=== PATIENT | male | born 1970 | race Caucasian/White ===

== ENCOUNTER 2023-09-08 21:47 | Inpatient (IN) | payer MEDICAID, SELFPAY ==
--- NOTE | ~2023-09-08 | US_ITS ---
EXAMINATION: US SCROTUM CLINICAL INFORMATION: Left-sided pain.. COMPARISON: None available. TECHNIQUE: A sonogram of the scrotum was performed assessing junior-scale appearance and color Doppler flow. Spectral Doppler analysis of the arterial and venous flow were performed in the testes bilaterally. FINDINGS: RIGHT: Right testicle measures 4 x 2.5 x 2.0 cm, volume 17.5 mL. No focal testicular parenchymal lesions are visualized. Spectral Doppler analysis of the arterial and venous flow is normal in the right testis. There is a 4 mm right epididymal head cyst. No right hydrocele or varicocele is seen. Right epididymal Doppler flow is normal. LEFT: Left testicle measures 3.2 x 2.0 x 2.5 cm, volume 8 mL. No focal testicular parenchymal lesions are visualized. Spectral Doppler analysis of the arterial and venous flow is normal in the left testis. There is a 2 mm left epididymal head cyst. Left epididymis is enlarged. No left hydrocele or varicocele is seen. Left epididymal Doppler flow is increased. US/US scrotum doppler IMPRESSION: Enlarged left epididymis with increased Doppler flow consistent with epididymitis. The testicles are normal.
--- NOTE | ~2023-09-08 | US_ITS ---
EXAMINATION: US SCROTUM CLINICAL INFORMATION: Left-sided pain.. COMPARISON: None available. TECHNIQUE: A sonogram of the scrotum was performed assessing junior-scale appearance and color Doppler flow. Spectral Doppler analysis of the arterial and venous flow were performed in the testes bilaterally. FINDINGS: RIGHT: Right testicle measures 4 x 2.5 x 2.0 cm, volume 17.5 mL. No focal testicular parenchymal lesions are visualized. Spectral Doppler analysis of the arterial and venous flow is normal in the right testis. There is a 4 mm right epididymal head cyst. No right hydrocele or varicocele is seen. Right epididymal Doppler flow is normal. LEFT: Left testicle measures 3.2 x 2.0 x 2.5 cm, volume 8 mL. No focal testicular parenchymal lesions are visualized. Spectral Doppler analysis of the arterial and venous flow is normal in the left testis. There is a 2 mm left epididymal head cyst. Left epididymis is enlarged. No left hydrocele or varicocele is seen. Left epididymal Doppler flow is increased. US/US scrotum IMPRESSION: Enlarged left epididymis with increased Doppler flow consistent with epididymitis. The testicles are normal.
[2023-09-08 21:57] VITALS: BP 110/66; BP 114/62; PULSE 104; PULSE 105; RESP 16; TEMP 37.9; O2SAT 98; BMI 27.3
[2023-09-08 22:03] VITALS: BP 114/62; PULSE 104; RESP 16; TEMP 37.9; O2SAT 98
--- NOTE | 2023-09-08 23:02 | ED_ITS ---
HPI - Male Genitourinary General Chief complaint: Urogenital-Male Stated complaint: ABD SWELLING Time Seen by Provider: 09/08/23 22:29 Source: patient Mode of arrival: ambulatory Limitations: no limitations History of Present Illness ED Provider: ELIER FERREIRA Narrative: 53 yo male with PMH of sciatica on gabapentin and tramadol noted 2 days of testicular pain and swelling much worse on L side today was seen at [facility] yesterday they did urine sample and told him they would call with results in 2 days no other labs or US done. He did have unprotected sex with female 1.5 months ago. He notes increase in urination and increased swelling in testicle. He has never had this before. He has chills, pain, fatigue and does not feel well MD Complaint: testicle pain and testicle swelling Onset (ago): day(s) (2) Duration: progressively worsening Location: left testicle Radiation: left testicle and left inguinal region Severity: moderate Quality: aching Relieving factors: rest Exacerbating factors: urination, palpation and movement Context: new sexual partner Associated symptoms: Reports dysuria Related Data Allergies Allergy/AdvReac Type Severity Reaction Status Date / Time No Known Allergies Allergy Verified 09/08/23 22:01 Review of Systems 2 Review of Systems: Constitutional : No Fever, pos Chills, pos Fatigue ENT/Mouth : No sore throat, No Rhinorrhea Eyes: No Eye Pain, No Swelling, No Redness Cardiovascular : No Chest Pain, No SOB, No Dyspnea on Exertion Respiratory : No Cough, No Sputum Gastrointestinal : No Nausea, No Vomiting, No Diarrhea, No abdominal Pain Genitourinary : pos Dysuria, No Urinary Frequency, No Hematuria, pos testicular pain and swelling Musculoskeletal : No joint pain, No Myalgias, No Joint Swelling Skin : No Skin Lesions, No rash Neuro : No Weakness, No Numbness, No Dizziness, no Headache Psych : No Anxiety/Panic, No Depression All other systems reviewed and are negative [facility] Past Medical History Attestation statement: The following information was validated with the patient. Source: old records reviewed Medical History Sciatica Social History Social History Patient Tobacco Use Status: Current someday Tobacco user Smoked in Last 30 Days: Yes Substance Use Type: Marijuana Advance Directives: No Advance Directives Information Provided: No Do you have a plan to hurt others: No Plan Physical Exam 2 Vital Signs: Vital Signs: Last Vital Signs Temp 99.5 F 09/09/23 00:00 Pulse 89 09/09/23 00:00 Resp 18 09/09/23 00:00 BP 113/68 09/09/23 00:00 Pulse Ox 98 09/09/23 00:00 O2 Del Method Room Air 09/09/23 00:00 BMI result Body Mass Index 27.3 Appearance: Alert. Oriented X3. No acute distress. Eyes: Pupils equal, round and reactive to light. ENT: Pharynx normal. Neck: Normal inspection. Neck supple. CVS: Normal heart rate and rhythm. Pulses normal. Respiratory: No respiratory distress. Breath sounds normal. Abdomen: Soft and nontender. : L scrotal area is ttp in spermatic cord region and redness/pain swelling fluctuant tender area on scrotal area as well Skin: Skin warm and dry. Normal skin color. Normal skin turgor. Extremities: No lower extremity edema. No calf ttp Neuro: Oriented X 3. No motor deficit. No sensory deficit. Medications Administered Generic Name Dose Route Start Last Admin Trade Name Freq PRN Reason Stop Dose Admin Enoxaparin Sodium 40 mg 09/09/23 01:30 09/09/23 01:45 Enoxaparin Sodium 40 Mg/0.4 Ml Syringe SUBCUT 40 mg Q24H JAZMINE Administration Discontinued Medications Generic Name Dose Route Start Last Admin Trade Name Freq PRN Reason Stop Dose Admin Sodium Chloride 1,000 mls @ 999 mls/hr 09/08/23 22:51 09/09/23 01:11 Ns IV 09/08/23 23:51 Infused .Q1H1M ONE Infusion Ceftriaxone Sodium 1 gm/ 50 mls @ 100 mls/hr 09/08/23 22:51 09/09/23 00:09 Sodium Chloride IV 09/08/23 23:20 Infused ONCE ONE Infusion Doxycycline Hyclate 100 mg/ 250 mls @ 166.67 mls/hr 09/08/23 23:57 09/09/23 01:49 Sodium Chloride IV 09/09/23 01:26 Infused ONCE ONE Infusion Doxycycline Hyclate 100 mg/ 250 mls @ 166.67 mls/hr 09/09/23 01:30 09/09/23 03:25 Sodium Chloride IV Not Given Q12H JAZMINE Ceftriaxone Sodium 1 gm/ 50 mls @ 100 mls/hr 09/09/23 01:30 09/09/23 03:25 Sodium Chloride IV Not Given Q24H [facility] Ketorolac Tromethamine 15 mg 09/08/23 22:51 09/08/23 23:12 Ketorolac Tromethamine 15 Mg/Ml Vial IVPUSH 09/08/23 22:52 15 mg ONCE ONE Administration Morphine Sulfate 4 mg 09/08/23 22:51 09/08/23 23:12 Morphine Sulfate 4 Mg/Ml Cartridge IVPUSH 09/08/23 22:52 4 mg ONCE ONE Administration Protocol Ondansetron HCl 4 mg 09/08/23 22:51 09/08/23 23:12 Ondansetron Hcl 4 Mg/2 Ml Vial IVPUSH 09/08/23 22:52 4 mg ONCE ONE Administration Medical Decision Making Medical Decision Making [facility] Narrative: 53 yo male with PMH of sciatica on gabapentin and tramadol here with c/o scrotal pain and swelling s/p sexual partner 1.5 months ago and dysuria at this time labs, US will start on fluids, empiric ceftriaxone could be abscess, cellulitis, epididymitis/orchitis. Will treat as presumed exposure ceftriaxone and doxy. He is not vomiting and able to tolerate PO Differential Diagnosis Differential Diagnoses: The differential diagnosis associated with the presentation includes abscess, cellulitis, epididymitis/orchitis Admission/Observation Consideration of admission/observation: Escalation of care including admission/observation considered has wbc count, fevers, HR > 100 known source of infection at this time will admit for further management would continue doxy and likely add on oral levofloxacin but will defer to hospitalist Consult Healthcare Provider Management of the patient was discussed with: Hospitalist (will admit) Lab Data [facility] Lab Attestation statement: I reviewed the patient's lab results. 09/08/23 23:03 09/08/23 23:03 Labs: Lab Results 09/08/23 Range/Units 23:03 WBC 20.3 H (4.8-10.8) X10*3/uL RBC 4.08 L (4.60-5.80) X10*6/uL Hgb 11.2 L (14.0-18.0) g/dl Hct 33.8 L (42.0-52.0) % MCV 82.8 (80.0-98.0) fL MCH 27.5 (27.0-33.0) pg MCHC 33.1 (31.0-36.0) g/dl RDW 14.6 (11.0-16.0) % Plt Count 460 H (160-400) X10*3/uL MPV 8.2 L (9.4-12.4) fL Immature Gran % (Auto) 0.5 H (0.0-0.4) % Neut % (Auto) 83.6 H (45-73) % Lymph % (Auto) 9.4 L (20-40) % [place] % (Auto) 5.5 (2-11) % Eos % (Auto) 0.8 (0-4) % Baso % (Auto) 0.2 (0-2) % Lymph # (Auto) 1.9 (1.2-4.9) X10*3/uL [place] # (Auto) 1.1 (0.1-1.2) X10*3/uL Eos # (Auto) 0.2 (0.0-0.4) X10*3/uL Baso # (Auto) 0.1 (0.0-0.2) X10*3/uL Abs Immat Gran (auto) 0.11 H (0.00-0.03) X10*3/uL Absolute Neuts (auto) 17.0 H (2.0-8.3) x10*3/uL Absolute Nucleated RBC 0.000 (0.0-0.012) X10*3/uL Nucleated RBC % (auto) 0.0 (0.0-0.2) /100WBC Sodium 138 (135-145) mmol/L Potassium 3.9 (3.3-5.1) mmol/L Chloride 104 (96-108) mmol/L Carbon Dioxide 25 (22-29) mmol/L Anion Gap 13 (12-20) BUN 13 (9-16) mg/dL Creatinine 0.78 (0.5-1.4) mg/dL Estim Creat Clear Calc 103.5 Estimated GFR > 60 Random Glucose 106 (60-115) mg/dL Lactic Acid 0.5 (0.5-2.0) mmol/L Calcium 9.5 (8.4-10.2) mg/dL Magnesium 2.0 (1.6-2.6) mg/dL Total Bilirubin 0.4 (0.0-1.0) mg/dL Direct Bilirubin 0.2 (0.0-0.5) mg/dL AST 16 (5-37) U/L ALT 14 (0-40) U/L Alkaline Phosphatase 71 (39-117) U/L Total Protein 7.5 (6.5-8.0) g/dL Albumin 3.9 (3.5-5.0) g/dL Lipase 23 (8-78) U/L Independent Interpretation I performed an independent interpretation of an: Ultrasound (epididymitis) Radiology Impression Discussion of test interpretation with radiology: I have reviewed the radiologist's reading. Critical Care Time Critical Care Time Critical Care Time: Yes Total Critical Care Time: 40 Attestation: pain improved with IV morphine, admission, sepsis protocol I attest to this time spent taking care of the patient Discharge Plan Discharge Clinical Impression: Epididymitis Elevated WBC count Qualifiers: Leukocytosis type: unspecified Qualified Code(s): D72.829 - Elevated white blood cell count, unspecified Patient Disposition: Admitted As Inpatient
[2023-09-08 23:10] LABS: MANUAL DIFF FLAG NO
[2023-09-08] MEDS: 0.9 % Sodium Chloride 1,000 ML 999 ML IV (23:11)
[2023-09-08 23:12] LABS: Basophils Absolute Auto 0.1 X10*3/uL (0.0-0.2); Basophils Percent Auto 0.2 % (0-2); Eosinophils Absolute Auto 0.2 X10*3/uL (0.0-0.4); Eosinophils Percent Auto 0.8 % (0-4); Hematocrit 33.8 % (42.0-52.0); Hemoglobin 11.2 g/dl (14.0-18.0); Imm Gran Abs Auto 0.11 X10*3/uL (0.00-0.03); Imm Gran Pct Auto 0.5 % (0.0-0.4); Lymphocytes Absolute Auto 1.9 X10*3/uL (1.2-4.9); Lymphocytes Percent Auto 9.4 % (20-40); Mean Corpuscular HGB Conc 33.1 g/dl (31.0-36.0); Mean Corpuscular Hemoglobin 27.5 pg (27.0-33.0); Mean Corpuscular Volume 82.8 fL (80.0-98.0); Mean Platelet Volume 8.2 fL (9.4-12.4); Monocytes Absolute Auto 1.1 X10*3/uL (0.1-1.2); Monocytes Percent Auto 5.5 % (2-11); Neutrophils Percent Auto 83.6 % (45-73); Platelet Count 460 X10*3/uL (160-400); Red Blood Count 4.08 X10*6/uL (4.60-5.80); Red Cell Distribution Width 14.6 % (11.0-16.0); White Blood Count 20.3 X10*3/uL (4.8-10.8)
[2023-09-08] MEDS: cefTRIAXone sodium 1 GM in 0.9 % Sodium Chloride 50 ML IV (23:12)
[2023-09-08] MEDS: ondansetron HCL 4 MG/2 ML VIAL IVPUSH (23:12)
[2023-09-08] MEDS: Ketorolac Tromethamine 15 MG/ML VIAL IVPUSH (23:12)
[2023-09-08] MEDS: Morphine Sulfate 4 MG/ML CARTRIDGE IVPUSH (23:12)
[2023-09-08 23:23] LABS: Lactic Acid 0.5 mmol/L (0.5-2.0)
[2023-09-08 23:29] LABS: Alanine Aminotransferase 14 U/L (0-40); Albumin Level 3.9 g/dL (3.5-5.0); Alkaline Phosphatase 71 U/L (39-117); Anion Gap 13 (12-20); Aspartate Amino Transferase 16 U/L (5-37); Bilirubin Direct 0.2 mg/dL (0.0-0.5); Bilirubin Total 0.4 mg/dL (0.0-1.0); Blood Urea Nitrogen 13 mg/dL (9-16); Calcium 9.5 mg/dL (8.4-10.2); Carbon Dioxide 25 mmol/L (22-29); Chloride 104 mmol/L (96-108); Creatinine Clr Calc Pharmacy 103.5; Estimated Glomerular Filt Rate > 60; Glucose Random 106 mg/dL (60-115); Lipase 23 U/L (8-78); Potassium 3.9 mmol/L (3.3-5.1); Sodium 138 mmol/L (135-145); Total Protein 7.5 g/dL (6.5-8.0)
[2023-09-09] VITALS: BP 113/68; PULSE 89; RESP 18; TEMP 37.5; O2SAT 98
[2023-09-09] MEDS: Doxycycline Hyclate 100 MG in 0.9 % Sodium Chloride 250 ML 166.67 MG IV ×2 (00:09→11:40)
--- NOTE | 2023-09-09 01:24 | P.HPHOSP_ITS ---
History of Present Illness Date of Service: 09/09/23 Chief Complaint: Testicular pain This is a 53-year-old male with pertinent history of peripheral neuropathy who presents to the emergency department for evaluation of testicular pain and swelling. Patient states symptoms started 2 days prior to presentation. He started having left testicular pain and swelling which has been progressive and without any relief. No history of similar symptoms before. Patient admits that he had unprotected vaginal intercourse with a new partner about a month ago. No penile discharge but does admit dysuria and some hematuria. No history of STIs in the past. No anal sexual intercourse. Does admit chills but no fever. Denies chest discomfort, palpitations, vomiting, nausea, shortness of breath, changes in bowel habits. In the emergency department, patient was found to be septic and imaging concerning for acute epididymitis Review of Systems 2 Constitutional: Constitutional: Reports chills and Reports fatigue Cardiovascular: Cardiovascular: Reports no additional cardiovascular complaints Respiratory: Respiratory: Reports no additional respiratory complaints Gastrointestinal: Gastrointestinal: Reports no additional gastrointestinal complaints Genitourinary: Genitourinary: Reports hematuria, Reports dysuria, Reports scrotal swelling, Reports testicular pain and Reports urinary frequency Endocrine: Endocrine: Reports fatigue [facility] Medical History Sciatica Pertinent family history: No family history of early CAD Social History Patient Tobacco Use Status: Current someday Tobacco user Smoked in Last 30 Days: Yes Substance Use Type: Marijuana Advance Directives: No Advance Directives Information Provided: No Do you have a plan to hurt others: No Plan Meds Allergies Allergy/AdvReac Type Severity Reaction Status Date / Time No Known Allergies Allergy Verified 09/08/23 22:01 Active Medications: Current Medications Doxycycline Hyclate 100 mg/ (Sodium Chloride) 250 mls @ 166.67 mls/hr IV ONCE ONE Stop: 09/09/23 01:26 Last Admin: 09/09/23 00:09 Dose: 166.67 mls/hr Physical Exam 2 Vital Signs and Narrative: Vital Signs: Last Vital Signs Temp 99.5 F 09/09/23 00:00 Pulse 89 09/09/23 00:00 Resp 18 09/09/23 00:00 BP 113/68 09/09/23 00:00 Pulse Ox 98 09/09/23 00:00 O2 Del Method Room Air 09/09/23 00:00 BMI result Body Mass Index 27.3 Middle-aged male lying in bed in no distress Neck supple, no JVD Regular rate and rhythm, S1-S2 heard Regular breath sounds bilaterally, no wheezing or crackles appreciated Abdomen soft nontender, no guarding, no rigidity Left scrotum with tenderness, swelling, erythema Patient is awake, alert and oriented to self, place, time and person ; no focal motor deficit Psych: Normal mood No pedal edema Results Labs 09/08/23 23:03 09/08/23 23:03 Labs: Laboratory Results - last 24 hr 09/08/23 23:03 MCV 82.8 MCH 27.5 MCHC 33.1 RDW 14.6 Plt Count 460 H MPV 8.2 L Immature Gran % (Auto) 0.5 H Neut % (Auto) 83.6 H Lymph % (Auto) 9.4 L [place] % (Auto) 5.5 Eos % (Auto) 0.8 Baso % (Auto) 0.2 Lymph # (Auto) 1.9 [place] # (Auto) 1.1 Eos # (Auto) 0.2 Baso # (Auto) 0.1 Abs Immat Gran (auto) 0.11 H Absolute Neuts (auto) 17.0 H Absolute Nucleated RBC 0.000 Nucleated RBC % (auto) 0.0 Anion Gap 13 Estim Creat Clear Calc 103.5 Estimated GFR > 60 Random Glucose 106 Lactic Acid 0.5 Calcium 9.5 Magnesium 2.0 Total Bilirubin 0.4 Direct Bilirubin 0.2 AST 16 ALT 14 Alkaline Phosphatase 71 Total Protein 7.5 Albumin 3.9 Lipase 23 Imaging Radiologist's Impressions: Impressions Scrotum Ultrasound 09/09/23 00:00 IMPRESSION: Enlarged left epididymis with increased Doppler flow consistent with epididymitis. The testicles are normal. Scrotum Ultrasound 09/09/23 00:00 IMPRESSION: Enlarged left epididymis with increased Doppler flow consistent with epididymitis. The testicles are normal. Assessment and Plan (1) Epididymitis: Status: Acute Plan This is a 53-year-old male with pertinent history of peripheral neuropathy who presents to the emergency department for evaluation of testicular pain and swelling. #. Acute epididymitis with sepsis: Will admit patient and initiate empiric IV ceftriaxone and doxycycline. Concern for STI as patient had vaginal intercourse with a new partner. CT NG pending. IV opioids p.r.n. for analgesia #. Peripheral neuropathy: On gabapentin and tramadol Med rec pending DVT prophylaxis: Lovenox Full code Admit as inpatient and will require two night minimum hospital stay for IV antibiotics, IV analgesics (as above), which is not possible in a lesser acute setting. Quality Stroke Does the patient have a stroke diagnosis?: No VTE Prior VTE?: No VTE Risk Level:: Medical - moderate - high VTE Device Contraindication: Treatment Not Indicated VTE Drug Contraindication: N/A - Med Ordered
[2023-09-09] MEDS: Enoxaparin Sodium 40 MG/0.4 ML SYRINGE SUBCUT (01:45)
[2023-09-09 05:00] LABS: MANUAL DIFF FLAG NO
[2023-09-09 05:03] LABS: Basophils Percent Auto 0.2 % (0-2); Eosinophils Absolute Auto 0.2 X10*3/uL (0.0-0.4); Eosinophils Percent Auto 1.3 % (0-4); Hematocrit 30.4 % (42.0-52.0); Hemoglobin 9.9 g/dl (14.0-18.0); Imm Gran Abs Auto 0.11 X10*3/uL (0.00-0.03); Imm Gran Pct Auto 0.7 % (0.0-0.4); Lymphocytes Percent Auto 12.2 % (20-40); Mean Corpuscular HGB Conc 32.6 g/dl (31.0-36.0); Mean Corpuscular Hemoglobin 27.3 pg (27.0-33.0); Mean Corpuscular Volume 83.7 fL (80.0-98.0); Mean Platelet Volume 8.7 fL (9.4-12.4); Monocytes Absolute Auto 1.3 X10*3/uL (0.1-1.2); Monocytes Percent Auto 7.5 % (2-11); Neutrophils Percent Auto 78.1 % (45-73); Platelet Count 407 X10*3/uL (160-400); Red Blood Count 3.63 X10*6/uL (4.60-5.80); Red Cell Distribution Width 14.7 % (11.0-16.0); White Blood Count 16.6 X10*3/uL (4.8-10.8)
[2023-09-09 05:19] LABS: Anion Gap 12 (12-20); Blood Urea Nitrogen 11 mg/dL (9-16); Calcium 8.8 mg/dL (8.4-10.2); Carbon Dioxide 24 mmol/L (22-29); Chloride 107 mmol/L (96-108); Creatinine Clr Calc Pharmacy 102.2; Estimated Glomerular Filt Rate > 60; Glucose Random 92 mg/dL (60-115); Potassium 3.7 mmol/L (3.3-5.1); Sodium 139 mmol/L (135-145)
[2023-09-09 06:00] VITALS: BP 128/79; PULSE 90; RESP 16; TEMP 37.3; O2SAT 100
[2023-09-09] MEDS: Acetaminophen 325 MG TABLET 650 MG PO (06:24)
[2023-09-09] MEDS: Morphine Sulfate 4 MG/ML CARTRIDGE IVPUSH ×2 (06:25→10:37)
[2023-09-09 08:10] VITALS: BP 115/81; PULSE 84; RESP 18; TEMP 36.6; O2SAT 98
[2023-09-09 08:10] LABS: Appearance Urine Clear; Color Urine Yellow; Glucose Urine UA Negative (Negative); Leukocyte Esterase Urine Moderate (2+) (Negative); Nitrite Urine Negative (Negative); PH 5.5 (5.0-9.0); Specific Gravity - Urine 1.015 (1.005-1.025); UMIC TRIGGER UACC YES; Urine Blood Negative (Negative); Urine Ketones Negative (Negative); Urine Protein Trace mg/dL (Neg-Trace)
[2023-09-09 08:22] LABS: Bacteria Urine None Seen (None Seen); Hyaline Casts Urine 0-2 /LPF (0-2); RBC Urine 0-2 /HPF (0-2); Squamous Epithelial Cell Urine 0-2 /HPF (0-2); UACC Culture Trigger YES; WBC Urine 21-50 /HPF (0-5)
--- NOTE | 2023-09-09 08:37 | PHA.MEDREC ---
Pharmacy Consult ? Medication Reconciliation Pharmacy has completed the medication reconciliation. spoke with patient to confirm medications. Patient does not take clonidine or hydroxyzine. He last took gabapentin yesterday. Patient states he has not taken the other medications in a few days because he keeps them at his friends house and she is not home all the time for him to take them.
[2023-09-09 09:11] VITALS: BMI 26.9
--- NOTE | 2023-09-09 11:08 | PM.EVENT ---
Event Note Date of Service: 09/09/23 Event Note: patient seen and examined, labs medications and imaging review, med rec completed. Pt admitted this morningfor acute epididymitis, plan as follow 53-year-old male with pertinent history of peripheral neuropathy who presents to the emergency department for evaluation of testicular pain and swelling. Acute epididymitis with sepsis -continue Ceftriaxone -Uro consult if not improving -morphine for pain Peripheral neuropathy: On gabapentin and tramadol Mood disorder--Cymbalta DVT prophylaxis: Lovenox Full code Time Spent With Patient Time: Total time managing care of this patient today ____ minutes.
[2023-09-09 11:20] LABS: CT PCR NOT DETECTED (Not Detect.); NG PCR DETECTED (Not Detect.)
[2023-09-09] MEDS: DULoxetine HCl 30 MG CAPSULE.DR PO (11:37)
--- NOTE | 2023-09-09 13:22 | MHC.CM.PN ---
Addendum entered by Radha Renteria 09/09/23 13:42: NEW HCP COMPLETED AND NOW ON FILE Original Note: PT REPORTS HE LIVES WITH A FRIEND AND IS INDEPENDENT WITH CARE HE HAS NO SERVICES AND NO DME PT WILL COMPLETE A HCP NAMING HIS FRIEND, DEANNE SCHMIDT, HIS AGENT PCP: DEANNE SALES DCP: HOME PT WILL NEED A LYFT FOR TRANSPORT
[2023-09-09] MEDS: Morphine Sulfate 2 MG/ML CARTRIDGE IVPUSH ×2 (14:32→19:10)
[2023-09-09] MEDS: Gabapentin 300 MG CAPSULE PO ×2 (14:32→21:19)
[2023-09-09] MEDS: 0.9 % Sodium Chloride Flush 3 ML SYRINGE IVFLUSH (14:33)
[2023-09-09 16:00] VITALS: BP 122/79; PULSE 72; RESP 16; TEMP 36.4; O2SAT 98
[2023-09-09 20:00] VITALS: BP 113/70; PULSE 99; RESP 16; TEMP 37.1; O2SAT 98
[2023-09-09] MEDS: traMADoL HCL 50 MG TABLET PO (21:19)
[2023-09-10] MEDS: cefTRIAXone sodium 1 GM in 0.9 % Sodium Chloride 50 ML IV (00:03)
[2023-09-10] MEDS: 0.9 % Sodium Chloride Flush 3 ML SYRINGE IVFLUSH ×3 (00:04→15:46)
[2023-09-10] MEDS: Morphine Sulfate 2 MG/ML CARTRIDGE IVPUSH ×4 (00:33→17:41)
[2023-09-10] MEDS: Enoxaparin Sodium 40 MG/0.4 ML SYRINGE SUBCUT (00:34)
[2023-09-10] MEDS: Doxycycline Hyclate 100 MG in 0.9 % Sodium Chloride 250 ML 166.67 MG IV ×2 (00:34→11:40)
[2023-09-10 03:58] VITALS: BP 123/84; PULSE 84; RESP 16; TEMP 36.1; O2SAT 99
[2023-09-10 06:24] LABS: Hemoglobin 11.4 g/dl (14.0-18.0); Mean Corpuscular HGB Conc 32.6 g/dl (31.0-36.0); Mean Corpuscular Hemoglobin 26.6 pg (27.0-33.0); Mean Corpuscular Volume 81.8 fL (80.0-98.0); Mean Platelet Volume 8.8 fL (9.4-12.4); Platelet Count 468 X10*3/uL (160-400); Red Blood Count 4.28 X10*6/uL (4.60-5.80); Red Cell Distribution Width 14.2 % (11.0-16.0)
[2023-09-10 06:35] LABS: Anion Gap 15 (12-20); Blood Urea Nitrogen 8 mg/dL (9-16); Calcium 9.6 mg/dL (8.4-10.2); Carbon Dioxide 24 mmol/L (22-29); Chloride 103 mmol/L (96-108); Creatinine Clr Calc Pharmacy 110.6; Estimated Glomerular Filt Rate > 60; Glucose Random 87 mg/dL (60-115); Potassium 4.2 mmol/L (3.3-5.1); Sodium 138 mmol/L (135-145)
[2023-09-10 07:48] VITALS: BP 136/86; PULSE 80; RESP 17; TEMP 36.3; O2SAT 99
[2023-09-10] MEDS: Gabapentin 300 MG CAPSULE PO ×3 (08:22→19:33)
[2023-09-10] MEDS: DULoxetine HCl 30 MG CAPSULE.DR PO (08:22)
--- NOTE | 2023-09-10 09:11 | HO.PM.IMPN ---
Subjective Subjective Date of Service: 09/10/23 Interval History: follow-up on STI (gonorrhea), acute epididymitis interval history: Reporting significant pain and swelling in left testicular area and inguinal area Physical Exam Vital Signs: Vital Signs: Last Vital Signs Temp 97.4 F 09/10/23 07:48 Pulse 80 09/10/23 07:48 Resp 17 09/10/23 07:48 BP 136/86 09/10/23 07:48 Pulse Ox 99 09/10/23 07:48 O2 Del Method Room Air 09/10/23 07:48 BMI result Body Mass Index 26.9 Const: Other: General: AO X 3, no acute distress Resp: CTA bilateral CVS: S1,S2,RRR GI: +BS, NT, no distention Skin: No rash : left tesicular and inguinal area swelling Neuro: motor grossly intact Psych: appropriate affect Objective Data Active Medications Acetaminophen (Acetaminophen 325 Mg Tablet) 650 mg PO Q6H PRN PRN Reason: Pain, Mild (Pain Scale 1-3), fever or headache Last Admin: 09/09/23 06:24 Dose: 650 mg Documented By: THOMAS Calcium Carbonate (Calcium Carbonate 750 Mg Tab.Chew) 750 mg PO Q4H PRN PRN Reason: Heartburn Duloxetine HCl (Duloxetine Hcl 30 Mg Capsule.Dr) 30 mg PO DAILY [facility] Last Admin: 09/10/23 08:22 Dose: 30 mg Documented By: MANDO Enoxaparin Sodium (Enoxaparin Sodium 40 Mg/0.4 Ml Syringe) 40 mg SUBCUT Q24H [facility] Last Admin: 09/10/23 00:34 Dose: 40 mg Documented By: AARON Gabapentin (Gabapentin 300 Mg Capsule) 300 mg PO TID [facility] Last Admin: 09/10/23 08:22 Dose: 300 mg Documented By: MANDO Ceftriaxone Sodium 1 gm/ (Sodium Chloride) 50 mls @ 100 mls/hr IV Q24H [facility] Last Infusion: 09/10/23 00:35 Dose: Infused Documented By: AARON Doxycycline Hyclate 100 mg/ (Sodium Chloride) 250 mls @ 166.67 mls/hr IV Q12H [facility] Last Infusion: 09/10/23 02:05 Dose: Infused Documented By: AARON Magnesium Hydroxide (Milk Of Magnesia 30 Ml Oral.Susp) 30 ml PO DAILY PRN PRN Reason: Constipation Melatonin (Melatonin 3 Mg Tablet) 6 mg PO BEDTIME PRN PRN Reason: Insomnia Morphine Sulfate (Morphine Sulfate 2 Mg/Ml Cartridge) 2 mg IVPUSH Q4H PRN; Protocol PRN Reason: Pain, Severe (Pain Scale 7-10) Last Admin: 09/10/23 09:03 Dose: 2 mg Documented By: MANDO Ondansetron HCl (Ondansetron Hcl 4 Mg/2 Ml Vial) 4 mg IVPUSH Q8H PRN PRN Reason: Nausea and Vomiting Sodium Chloride (0.9 % Sodium Chloride Flush 3 Ml Syringe) [facility] Last Admin: 09/10/23 08:21 Dose: 3 ml Documented By: MANDO Tramadol HCl (Tramadol Hcl 50 Mg Tablet) 50 mg PO Q6H PRN PRN Reason: moderate pain Last Admin: 09/09/23 21:19 Dose: 50 mg Documented By: AARON Labs 09/10/23 05:20 09/10/23 05:20 Labs: Laboratory Results - last 24 hr 09/09/23 09/10/23 08:02 05:20 MCV 81.8 MCH 26.6 L MCHC 32.6 RDW 14.2 Plt Count 468 H MPV 8.8 L Absolute Nucleated RBC 0.000 Nucleated RBC % (auto) 0.0 Anion Gap 15 Estim Creat Clear Calc 110.6 Estimated GFR > 60 Random Glucose 87 Calcium 9.6 D Chlam trachomat DNA PCR NOT DETECTED N.gonorrhoeae DNA (PCR) DETECTED A Microbiology Microbiology Results: Microbiology 09/09/23 Unknown Urine Culture - Final Urine clean catch - Clean Catch Midstream No growth. 09/08/23 23:05 Blood Culture - Preliminary Blood - Venous No growth after 24 hours. 09/08/23 23:05 Blood Culture - Preliminary Blood - Venous No growth after 24 hours. Assessment and Plan (1) Epididymitis: Status: Acute (2) Gonorrhea: Status: Acute Plan 53-year-old male with pertinent history of peripheral neuropathy who presents to the emergency department for evaluation of testicular pain and swelling and being treated for epididymitis due to gonorrhea Acute epididymitis, orchitis with sepsis, WBC down, sepsis resolved STI ( gonorrhea ) -continue Ceftriaxone and Doxycyline started 7/21 -Uro consult -morphine for pain -advised to notify sexual partner(s) of STI Peripheral neuropathy: On gabapentin and tramadol Mood disorder--Cymbalta DVT prophylaxis: Lovenox Full code inpt for IV Abx for acute, severe and painful epididymitis Quality Stroke Does the patient have a stroke diagnosis?: No VTE Prior VTE?: No VTE Risk Level:: Medical - moderate - high VTE Device Contraindication: Treatment Not Indicated VTE Drug Contraindication: N/A - Med Ordered
--- NOTE | 2023-09-10 15:47 | MHC.CM.PN ---
per rounds pt expected to dc tomorrow plamn remains home no servies
[2023-09-10 16:00] VITALS: BP 132/91; PULSE 85; RESP 18; TEMP 36.1; O2SAT 99
--- NOTE | 2023-09-10 16:15 | P.CNUR_ITS ---
History of Present Illness Consult details Consult date: 09/10/23 Narrative: CC: Left epididymitis 53-year-old male Presents with worsening left testicular pain and swelling Symptoms progressive over 48 hours Reports low-grade fever Initial WBC 20.3. Found to have other SIRS criteria. Admitted for rehydration and antibiotics. No prior STIs. Denies history of anal sexual intercourse. Blood culture negative, urine culture negative. Does report weakness of stream in the week leading up to the infection Continue antibiotics Initiate alpha-maranda prostate therapy to assist with urination Review of Systems 2 Constitutional: Constitutional: Reports as per HPI and Reports no additional constitutional complaints Cardiovascular: Cardiovascular: Reports as per HPI and Reports no additional cardiovascular complaints Respiratory: Respiratory: Reports as per HPI and Reports no additional respiratory complaints Gastrointestinal: Gastrointestinal: Reports as per HPI and Reports no additional gastrointestinal complaints Genitourinary: Genitourinary: Reports as per HPI Musculoskeletal: Musculoskeletal: Reports no additional musculoskeletal complaints and Reports as per HPI Neurologic: Reports system reviewed and no additional complaints, except as documented and Reports as per HPI PMFSH Past Medical History Medical History Sciatica Social History Social History Household Members: Friend(s) Housing: House Do you presently have visiting nurse or other home services: No Patient Tobacco Use Status: Current everyday Tobacco user Cigarettes Per Day: 5 Substance Use Type: Crack/Cocaine and Marijuana service: No Meds Allergies Allergy/AdvReac Type Severity Reaction Status Date / Time No Known Allergies Allergy Verified 09/08/23 22:01 Active Medications: Current Medications Acetaminophen (Acetaminophen 325 Mg Tablet) 650 mg PO Q6H PRN PRN Reason: Pain, Mild (Pain Scale 1-3), fever or headache Last Admin: 09/09/23 06:24 Dose: 650 mg Calcium Carbonate (Calcium Carbonate 750 Mg Tab.Chew) 750 mg PO Q4H PRN PRN Reason: Heartburn Duloxetine HCl (Duloxetine Hcl 30 Mg Capsule.Dr) 30 mg PO DAILY [facility] Last Admin: 09/10/23 08:22 Dose: 30 mg Enoxaparin Sodium (Enoxaparin Sodium 40 Mg/0.4 Ml Syringe) 40 mg SUBCUT Q24H [facility] Last Admin: 09/10/23 00:34 Dose: 40 mg Gabapentin (Gabapentin 300 Mg Capsule) 300 mg PO TID [facility] Last Admin: 09/10/23 15:42 Dose: 300 mg Ceftriaxone Sodium 1 gm/ (Sodium Chloride) 50 mls @ 100 mls/hr IV Q24H [facility] Last Infusion: 09/10/23 00:35 Dose: Infused Doxycycline Hyclate 100 mg/ (Sodium Chloride) 250 mls @ 166.67 mls/hr IV Q12H [facility] Last Infusion: 09/10/23 13:17 Dose: Infused Magnesium Hydroxide (Milk Of Magnesia 30 Ml Oral.Susp) 30 ml PO DAILY PRN PRN Reason: Constipation Melatonin (Melatonin 3 Mg Tablet) 6 mg PO BEDTIME PRN PRN Reason: Insomnia Morphine Sulfate (Morphine Sulfate 2 Mg/Ml Cartridge) 2 mg IVPUSH Q4H PRN; Protocol PRN Reason: Pain, Severe (Pain Scale 7-10) Last Admin: 09/10/23 13:31 Dose: 2 mg Ondansetron HCl (Ondansetron Hcl 4 Mg/2 Ml Vial) 4 mg IVPUSH Q8H PRN PRN Reason: Nausea and Vomiting Sodium Chloride (0.9 % Sodium Chloride Flush 3 Ml Syringe) 3 ml IVFLUSH QSHIFT [facility] Last Admin: 09/10/23 15:46 Dose: 3 ml Tramadol HCl (Tramadol Hcl 50 Mg Tablet) 50 mg PO Q6H PRN PRN Reason: moderate pain Last Admin: 09/09/23 21:19 Dose: 50 mg Home Medications ?Medication ?Instructions ?Recorded ?Confirmed ?Last Taken ?Type baclofen 10 mg tablet 10 mg PO BID PRN Pain 09/09/23 09/09/23 Unknown History duloxetine 30 mg capsule,delayed 30 mg PO DAILY 09/09/23 09/09/23 Unknown History release gabapentin 300 mg capsule 300 mg PO TID 09/09/23 09/09/23 09/08/23 History meloxicam 7.5 mg tablet 7.5 mg PO DAILY 09/09/23 09/09/23 Unknown History tramadol 50 mg tablet 50 mg PO Q6H PRN moderate pain 09/09/23 09/09/23 Unknown History Physical Exam 2 Vital Signs: Vital Signs: Last Vital Signs Temp 97.4 F 09/10/23 07:48 Pulse 80 09/10/23 07:48 Resp 17 09/10/23 07:48 BP 136/86 09/10/23 07:48 Pulse Ox 99 09/10/23 07:48 O2 Del Method Room Air 09/10/23 07:48 BMI result Body Mass Index 26.9 Const: General: cooperative, healthy appearing, comfortable and no acute distress Orientation/consciousness: patient oriented x3 HEENT: Face and sinus: Yes normal facial exam Mouth: moist mucous membranes Neck: Neck: Yes normal visual inspection, Yes full ROM and Yes trachea midline Chest: Chest palpation & inspection: normal inspection of the chest Resp: Effort & Inspection: normal respiratory effort, able to speak in complete sentences and no respiratory distress GI: Inspection: Yes normal to inspection Back/Spine/Pelvis: Cervical Spine: normal cervical lordosis Thoracic/Lumbar Spine: thoracic and lumbar spine normal to inspection Skin: General skin exam: no rashes or lesions noted Neuro: General: patient oriented x3, tone normal and moves all extremities Extrem: General: Yes normal to inspection and Yes capillary refill normal Results Labs 09/10/23 05:20 09/10/23 05:20 Labs: Abnormal lab results 09/10/23 Range/Units 05:20 WBC 15.0 H (4.8-10.8) X10*3/uL RBC 4.28 L (4.60-5.80) X10*6/uL Hgb 11.4 L (14.0-18.0) g/dl Hct 35.0 L (42.0-52.0) % MCH 26.6 L (27.0-33.0) pg Plt Count 468 H (160-400) X10*3/uL MPV 8.8 L (9.4-12.4) fL BUN 8 L (9-16) mg/dL Short CBC 09/10/23 Range/Units 05:20 WBC 15.0 H (4.8-10.8) X10*3/uL Hgb 11.4 L (14.0-18.0) g/dl Hct 35.0 L (42.0-52.0) % Plt Count 468 H (160-400) X10*3/uL BMP 09/10/23 05:20 Sodium 138 Potassium 4.2 Chloride 103 Carbon Dioxide 24 BUN 8 L Creatinine 0.73 Calcium 9.6 D Urine 09/09/23 Range/Units 08:02 Urine Color Yellow Urine Appearance Clear Urine pH 5.5 (5.0-9.0) Ur Specific [place] 1.015 (1.005-1.025) Urine Protein Trace (Neg-Trace) mg/dL Urine Glucose (UA) Negative (Negative) mg/dL All other labs normal. Assessment and Plan (1) Epididymitis: Status: Acute (2) Bladder outlet obstruction: Status: Acute Plan Continue IV antibiotics Start alpha-maranda Follow-up office 4-6 weeks Procedures Date of Service Date of Service: 09/10/23
[2023-09-10 19:13] VITALS: BP 125/82; PULSE 80; RESP 18; TEMP 36.2; O2SAT 98
[2023-09-10] MEDS: Doxazosin Mesylate 2 MG TABLET 4 MG PO (19:33)
[2023-09-10] MEDS: traMADoL HCL 50 MG TABLET PO (19:34)
[2023-09-10] MEDS: Milk of Magnesia 30 ML ORAL.SUSP PO (19:38)
[2023-09-11] MEDS: Doxycycline Hyclate 100 MG in 0.9 % Sodium Chloride 250 ML 166.67 MG IV ×2 (00:18→12:06)
[2023-09-11] MEDS: cefTRIAXone sodium 1 GM in 0.9 % Sodium Chloride 50 ML IV (00:18)
[2023-09-11] MEDS: 0.9 % Sodium Chloride Flush 3 ML SYRINGE IVFLUSH ×3 (00:18→14:27)
[2023-09-11] MEDS: Enoxaparin Sodium 40 MG/0.4 ML SYRINGE SUBCUT (00:19)
[2023-09-11] MEDS: Morphine Sulfate 2 MG/ML CARTRIDGE IVPUSH ×2 (00:31→07:49)
[2023-09-11 04:00] VITALS: BP 155/54; PULSE 81; RESP 18; TEMP 36.1; O2SAT 97
[2023-09-11 06:28] LABS: Hemoglobin 11.1 g/dl (14.0-18.0); Mean Corpuscular HGB Conc 32.6 g/dl (31.0-36.0); Mean Corpuscular Hemoglobin 26.9 pg (27.0-33.0); Mean Corpuscular Volume 82.5 fL (80.0-98.0); Mean Platelet Volume 8.5 fL (9.4-12.4); Platelet Count 503 X10*3/uL (160-400); Red Blood Count 4.12 X10*6/uL (4.60-5.80); Red Cell Distribution Width 14.1 % (11.0-16.0); White Blood Count 10.4 X10*3/uL (4.8-10.8)
[2023-09-11 07:49] VITALS: RESP 18
[2023-09-11] MEDS: DULoxetine HCl 30 MG CAPSULE.DR PO (07:49)
[2023-09-11] MEDS: Gabapentin 300 MG CAPSULE PO ×3 (07:49→19:57)
[2023-09-11 07:50] VITALS: BP 115/66; PULSE 88; RESP 16; TEMP 36.4; O2SAT 100
--- NOTE | 2023-09-11 08:31 | HO.PM.IMPN ---
Subjective Subjective Date of Service: 09/11/23 Interval History: follow-up on STI (gonorrhea), acute epididymitis interval history: Still reporting left testicular swelling and pain, no fever, WBC is better Physical Exam Vital Signs: Vital Signs: Last Vital Signs Temp 97.5 F 09/11/23 07:50 Pulse 88 09/11/23 07:50 Resp 16 09/11/23 07:50 BP 115/66 09/11/23 07:50 Pulse Ox 100 09/11/23 07:50 O2 Del Method Room Air 09/11/23 07:50 BMI result Body Mass Index 26.9 Const: Other: General: AO X 3, no acute distress Resp: CTA bilateral CVS: S1,S2,RRR GI: +BS, NT, no distention Skin: No rash : left tesicular and inguinal area swelling--essentially same Neuro: motor grossly intact Psych: appropriate affect Objective Data Active Medications Acetaminophen (Acetaminophen 325 Mg Tablet) 650 mg PO Q6H PRN PRN Reason: Pain, Mild (Pain Scale 1-3), fever or headache Last Admin: 09/09/23 06:24 Dose: 650 mg Documented By: THOMAS Calcium Carbonate (Calcium Carbonate 750 Mg Tab.Chew) 750 mg PO Q4H PRN PRN Reason: Heartburn Doxazosin Mesylate (Doxazosin Mesylate 2 Mg Tablet) 4 mg PO BEDTIME [facility]; Protocol Last Admin: 09/10/23 19:33 Dose: 4 mg Documented By: AARON Duloxetine HCl (Duloxetine Hcl 30 Mg Capsule.) 30 mg PO DAILY [facility] Last Admin: 09/11/23 07:49 Dose: 30 mg Documented By: NEREYDA Enoxaparin Sodium (Enoxaparin Sodium 40 Mg/0.4 Ml Syringe) 40 mg SUBCUT Q24H [facility] Last Admin: 09/11/23 00:19 Dose: 40 mg Documented By: AARON Gabapentin (Gabapentin 300 Mg Capsule) 300 mg PO TID [facility] Last Admin: 09/11/23 07:49 Dose: 300 mg Documented By: NEREYDA Ceftriaxone Sodium 1 gm/ (Sodium Chloride) 50 mls @ 100 mls/hr IV Q24H [facility] Last Infusion: 09/11/23 00:49 Dose: Infused Documented By: AARON Doxycycline Hyclate 100 mg/ (Sodium Chloride) 250 mls @ 166.67 mls/hr IV Q12H [facility] Last Infusion: 09/11/23 02:21 Dose: Infused Documented By: AARON Magnesium Hydroxide (Milk Of Magnesia 30 Ml Oral.Susp) 30 ml PO DAILY PRN PRN Reason: Constipation Last Admin: 09/10/23 19:38 Dose: 30 ml Documented By: AARON Melatonin (Melatonin 3 Mg Tablet) 6 mg PO BEDTIME PRN PRN Reason: Insomnia Morphine Sulfate (Morphine Sulfate 2 Mg/Ml Cartridge) 2 mg IVPUSH Q4H PRN; Protocol PRN Reason: Pain, Severe (Pain Scale 7-10) Last Admin: 09/11/23 07:49 Dose: 2 mg Documented By: NEREYDA Ondansetron HCl (Ondansetron Hcl 4 Mg/2 Ml Vial) 4 mg IVPUSH Q8H PRN PRN Reason: Nausea and Vomiting Sodium Chloride (0.9 % Sodium Chloride Flush 3 Ml Syringe) 3 ml IVFLUSH QSHIFT [facility] Last Admin: 09/11/23 07:48 Dose: 3 ml Documented By: NEREYDA Tramadol HCl (Tramadol Hcl 50 Mg Tablet) 50 mg PO Q6H PRN PRN Reason: moderate pain Last Admin: 09/10/23 19:34 Dose: 50 mg Documented By: AARON Labs 09/11/23 05:35 09/10/23 05:20 Labs: Laboratory Results - last 24 hr 09/11/23 05:35 MCV 82.5 MCH 26.9 L MCHC 32.6 RDW 14.1 Plt Count 503 H MPV 8.5 L Absolute Nucleated RBC 0.000 Nucleated RBC % (auto) 0.0 Microbiology Microbiology Results: Microbiology 09/08/23 23:05 Blood Culture - Preliminary Blood - Venous No growth after 48 hours. 09/08/23 23:05 Blood Culture - Preliminary Blood - Venous No growth after 48 hours. 09/09/23 Unknown Urine Culture - Final Urine clean catch - Clean Catch Midstream No growth. Assessment and Plan (1) Epididymitis: Status: Acute (2) Gonorrhea: Status: Acute Plan 53-year-old male with pertinent history of peripheral neuropathy who presents to the emergency department for evaluation of testicular pain and swelling and being treated for epididymitis due to gonorrhea Acute epididymitis, orchitis with sepsis STI ( gonorrhea ) -sepsis resolved, WBC normal, no fever -continue Ceftriaxone and Doxycyline started 09/08 -Uro recommends alpha maranda--Flomax -morphine for pain -advised to notify sexual partner(s) of STI Peripheral neuropathy: On gabapentin and tramadol Mood disorder--Cymbalta DVT prophylaxis: Lovenox Full code inpt for IV Abx for acute, severe and painful Epididymitis out of bed, ambulate Quality Stroke Does the patient have a stroke diagnosis?: No VTE Prior VTE?: No VTE Risk Level:: Medical - moderate - high VTE Device Contraindication: Treatment Not Indicated VTE Drug Contraindication: N/A - Med Ordered
[2023-09-11] MEDS: traMADoL HCL 50 MG TABLET PO ×2 (09:52→19:57)
[2023-09-11] MEDS: Morphine Sulfate 2 MG/ML CARTRIDGE 4 MG IVPUSH ×3 (12:07→20:46)
[2023-09-11 15:41] VITALS: BP 106/58; PULSE 80; RESP 18; TEMP 36.7; O2SAT 99
[2023-09-11 16:39] VITALS: BP 121/79; PULSE 72
[2023-09-11 19:25] VITALS: BP 117/73; PULSE 88; RESP 18; TEMP 36.3; O2SAT 98
[2023-09-11] MEDS: Doxazosin Mesylate 2 MG TABLET 4 MG PO (19:57)
[2023-09-12] MEDS: Enoxaparin Sodium 40 MG/0.4 ML SYRINGE SUBCUT (01:09)
[2023-09-12] MEDS: Morphine Sulfate 2 MG/ML CARTRIDGE 4 MG IVPUSH ×2 (01:09→07:34)
[2023-09-12] MEDS: Doxycycline Hyclate 100 MG in 0.9 % Sodium Chloride 250 ML 166.67 MG IV (01:10)
[2023-09-12] MEDS: cefTRIAXone sodium 1 GM in 0.9 % Sodium Chloride 50 ML IV (01:10)
[2023-09-12] MEDS: 0.9 % Sodium Chloride Flush 3 ML SYRINGE IVFLUSH ×2 (01:11→07:35)
[2023-09-12] MEDS: traMADoL HCL 50 MG TABLET PO ×2 (03:32→12:18)
[2023-09-12 03:52] VITALS: BP 101/61; PULSE 77; RESP 16; TEMP 36.1; O2SAT 99
[2023-09-12 06:38] LABS: Hemoglobin 10.8 g/dl (14.0-18.0); Mean Corpuscular HGB Conc 31.8 g/dl (31.0-36.0); Mean Corpuscular Hemoglobin 26.7 pg (27.0-33.0); Mean Corpuscular Volume 84.2 fL (80.0-98.0); Mean Platelet Volume 8.5 fL (9.4-12.4); Platelet Count 510 X10*3/uL (160-400); Red Blood Count 4.04 X10*6/uL (4.60-5.80); Red Cell Distribution Width 13.9 % (11.0-16.0); White Blood Count 7.6 X10*3/uL (4.8-10.8)
[2023-09-12] MEDS: Gabapentin 300 MG CAPSULE PO (07:33)
[2023-09-12] MEDS: DULoxetine HCl 30 MG CAPSULE.DR PO (07:33)
[2023-09-12 07:34] VITALS: BP 113/74; PULSE 70; RESP 16; TEMP 36.1; O2SAT 99
--- NOTE | 2023-09-12 08:50 | P.DS_ITS ---
DS: Providers Provider Date of Service: 09/12/23 Date of admission: 09/09/23 01:18 Primary care physician: Beverley Jiang MD Consults: 09/10/23 09:20 Consult to Urology Routine Consulting Provider: [facility] Reason for consultation: acute epididymitis with this severe pain and swelling DS: Diagnosis Discharge Diagnosis (1) Epididymitis: Status: Acute (2) Gonorrhea: Status: Acute DS: Summary Hospital Course Hospital Course: Chief Complaint: Testicular pain This is a 53-year-old male with pertinent history of peripheral neuropathy who presents to the emergency department for evaluation of testicular pain and swelling. Patient states symptoms started 2 days prior to presentation. He started having left testicular pain and swelling which has been progressive and without any relief. No history of similar symptoms before. Patient admits that he had unprotected vaginal intercourse with a new partner about a month ago. No penile discharge but does admit dysuria and some hematuria. No history of STIs in the past. No anal sexual intercourse. Does admit chills but no fever. Denies chest discomfort, palpitations, vomiting, nausea, shortness of breath, changes in bowel habits. In the emergency department, patient was found to be septic and imaging concerning for acute epididymitis hospital course: The patient presented with testicular pain. An ultrasound of the scrotum showed Enlarged left epididymis with increased Doppler flow consistent with epididymitis. Further testing revealed gonorrhea. He has been treated with ceftriaxone and doxycycline. His initial fever and elevated WBC (15) have normalized (7). He has been evaluated by Urology, and it is expected that his symptoms may persist for 4-6 weeks. He will be transitioned to oral doxycycline and Ceftin for a total of 14 days. He is advised to inform his sexual partners of the STI (gonorrhea). Final diagnoses: Epididymitis orchitis ( STI ) gonorrhea Time Attestation Discharge Coordination Time (in mins): 40 Quality: Safe Use of Opioids Does Pt have an Active Cancer Diagnosis on the Problem List?: No Quality: Stroke Does the patient have a stroke diagnosis?: No Physical Exam Vital Signs: Vital Signs: Last Vital Signs Temp 97.0 F 09/12/23 07:34 Pulse 70 09/12/23 07:34 Resp 16 09/12/23 07:34 BP 113/74 09/12/23 07:34 Pulse Ox 99 09/12/23 07:34 O2 Del Method Room Air 09/12/23 07:34 BMI result Body Mass Index 26.9 Const: Other: General: AO X 3, no acute distress Resp: CTA bilateral CVS: S1,S2,RRR GI: +BS, NT, no distention Skin: No rash : left tesicular and inguinal area swelling is better, not red and not hard, Neuro: motor grossly intact Psych: appropriate affect DS: Data Data Completed and Pending Labs on day of discharge: Laboratory Results - last 24 hr 09/12/23 05:47 WBC 7.6 RBC 4.04 L Hgb 10.8 L Hct 34.0 L MCV 84.2 MCH 26.7 L MCHC 31.8 RDW 13.9 Plt Count 510 H MPV 8.5 L Absolute Nucleated RBC 0.000 Nucleated RBC % (auto) 0.0 Preliminary micro results at discharge 09/08/23 23:05 Blood Culture - Preliminary Blood - Venous No growth after 48 hours. 09/08/23 23:05 Blood Culture - Preliminary Blood - Venous No growth after 48 hours. Discharge Plan Discharge Anticipated Discharge Date/Time: 09/12/23 08:41 Patient Disposition: Home, Self-Care Discharge Diagnosis: epididymitis, orchitis, gonorrhea Referrals: Beverley Jiang MD [Primary Care Provider] - 1 Week Discharge Medications: Continued tramadol 50 mg tablet 50 mg PO Q6H PRN (Reason: moderate pain) meloxicam 7.5 mg tablet 7.5 mg PO DAILY baclofen 10 mg tablet 10 mg PO BID PRN (Reason: Pain) gabapentin 300 mg capsule 300 mg PO TID duloxetine 30 mg capsule,delayed release(DR/EC) 30 mg PO DAILY Diet: Advance to usual diet Activity on Discharge: As tolerated Stand Alone Forms: Patient Portal Discharge page Print Language: [place] Care Plan Goals: full recovery from epididymitis, orchitis, and sexually transmitted infection. Health Concerns: Sexually transmitted infection (gonorrhea) epididymitis, orchitis Plan of Treatment: Take doxycycline as recommended and follow up with your primary care doctor within a week please inform your sexual partners of the sexually transmitted infection. also instructed to avoid sexual intercourse until he is fully treated and again to inform his sexual partners that he has been recently treated for an STI Assessment: see above Patient Instructions: Epididymitis (GEN), Gonorrhea (GEN)
[2023-09-12 11:13] LABS: HIV AB/AG Nonreactive (Nonreactive); HIV Num 1 0.05 S/CO (0.00-0.99)
[2023-09-12] MEDS: Doxycycline Monohydrate 100 MG CAPSULE PO (12:18)
--- NOTE | 2023-09-12 13:55 | MHC.CM.PN ---
PT MEDICALLY CLEARED FOR [facility] HOME SELF CARE W/CM ARRANGING FOR LYFT TRANSPORT
== END 2023-09-12 13:51 | disposition home or self-care (01) | DRG 720 ==
LOC: HO.ED 09-09 01:09 → HO.EDOVER 09-09 01:45 → HO.S3 09-09 07:31
PROVIDERS: Admitting Provider Student in an Organized Health Care Education/Training Program; Emergency Provider Emergency Medicine; PCP Family Medicine; Visit Provider Internal Medicine
DX: A41.9 Sepsis, unspecified organism (principal); A54.23 Gonococcal infection of other male genital organs; N32.0 Bladder-neck obstruction; F17.210 Nicotine dependence, cigarettes, uncomplicated; N45.1 Epididymitis; F39 Unspecified mood [affective] disorder; Z71.6 Tobacco abuse counseling; G62.9 Polyneuropathy, unspecified; Z79.899 Other long term (current) drug therapy
CPT/HCPCS: 36415; 76870; 80048; 80076; 81001; 83605; 83690; 83735; 85025; 85027; 87040; 87086; 87389; 87491; 87591; 93975; 99221; 99285; J0696; J1650; J1885; J2270; J2405

== ENCOUNTER → 2023-09-09 01:18 | Outpatient (BNV) | payer MEDICAID, SELFPAY | PROVIDERS: Admitting Provider Student in an Organized Health Care Education/Training Program; Emergency Provider Emergency Medicine; PCP Family Medicine; Visit Provider Student in an Organized Health Care Education/Training Program | DX: N45.1 Epididymitis (principal); A54.9 Gonococcal infection, unspecified | CPT/HCPCS: 99222; 99232; 99239; 99499 ==

== ENCOUNTER → 2023-09-09 01:18 | Outpatient (BNV) | payer MEDICAID, SELFPAY | PROVIDERS: Admitting Provider Student in an Organized Health Care Education/Training Program; Emergency Provider Emergency Medicine; PCP Family Medicine; Visit Provider Urology | DX: N45.1 Epididymitis (principal); N32.0 Bladder-neck obstruction | CPT/HCPCS: 99222 ==